=== PATIENT | male | born 1960 | race Caucasian/White ===

== ENCOUNTER → 2020-03-10 08:40 | Outpatient (CLI) | payer MEDICARE, BC ==
[2013-03-27 09:10] VITALS: BMI 23.5
== END | disposition home or self-care (01) ==
LOC: D.HCCECHO 08:40
PROVIDERS: ATTEND Internal Medicine Cardiovascular Disease
DX: I20.9 Angina pectoris, unspecified (principal); R06.00 Dyspnea, unspecified

== ENCOUNTER 2020-03-21 11:17 | Outpatient (CLI) | payer MEDICARE, BC ==
[~2020-03-21] VITALS: Ht 175.3 cm; Wt 88.6 kg
--- NOTE | ~2020-03-21 | HEMODYNAMI ---
PATIENT:ALISA MENDOZA JR MEDICAL RECORD: [id number] : 62 LOCATION:[facility] ADMISSION DATE: 03/21/20 Generatedon:03/21/202013:37 Patient name: ALISA MENDOZA Patient #: [id number] SSN: [id number] : 1960 Date of study: 03/21/2020 Page: Of Hemodynamic Procedure Report Patient Data Patient Demographics Procedure consent was obtained First Name: ALISA Gender: Male Last Name: REJI Suffix: Jr Freedman Initial: ARMANDO : 1960 Patient #: [id number] Age: 59 year(s) Race: SSN: [id number] Additional ID: [id number] Contact details [address]: [address] [place] [address] [address] State: [place] City: [place] Zip code: [address] Past Medical History Performed procedures and imaging results Date Procedure Procedure Results Comments Stress testing Positive->Intermediate with SPECT MPI risk Allergies: No known allergies Admission Admission Data Admission Date: 03/21/2020 Admission Time: 11:17 Admit Source: Other Lab Results Lab Result Date: 03/21/2020 Lab Result Time: 0:00 Biochemistry Name Units Result Min Max BUN mg/dl 16 --(---*)-- 7 18 Creatinine mg/dl 1 --(--*-)-- 0.6 1.3 eGFR ml/min 81 *-(----)-- 90 120 NONAFRICAN CBC Name Units Result Min Max Hematocrit % 39.7 -*(----)-- 42 54 Hemoglobin g/dl 13.3 -*(----)-- 13.5 17.5 Procedure Procedure Types Cath Procedure Diagnostic Procedure [facility] w/Coron[facility] Procedure Description Procedure Date Procedure Date: 03/21/2020 Procedure Start Time: 13:26 Procedure End Time: 13:35 Procedure Staff Name Function Liborio Lopez MD Performing Physician Amaris Bo RT Monitor Malik Chandra RT Scrub Buffie Sanders RN Nurse Procedure Data Cath Procedure Fluoroscopy Diagnostic fluoroscopy Total fluoroscopy Time: 2.1 time: 2.1 min min Diagnostic fluoroscopy Total fluoroscopy dose: 408 dose: 408 mGy mGy Contrast Material Contrast Material Type Amount (ml) Isovue 300 39 Entry Location Entry Primary Successful Side Size Upsize Upsize Entry Closure Gonzalez ccessful Closure Location (Fr) 1 (Fr) 2 (Fr) Remarks Device Remarks Radial Right 6 Fr Mechanical artery Short Compression Estimated blood loss: 5 ml Diagnostic catheters Device Type Used For End Catheter Placement DIAGNOSTIC [place] 110cm 5 Procedure Fr catheter ([id number]) Procedure Complications No complications Procedure Medications Medication Administration Route Dosage Oxygen etCO2 Nasal cannula 2 l/min Lidocaine 2% added to field 20 Heparin Flush Bag added to field 2 bags (1000units/500ml NS) 0.9% NaCl I.V. 100 ml/hr Versed I.V. 2 mg Fentanyl I.V. 100 mcg Radial Cocktail I.A. 1 syringe (Verapamil 2mg/Nitro 400mcg/Heparin 1500units) Versed I.V. 1 mg Fentanyl I.V. 50 mcg Hemodynamics Rest HGB: 13.3 (g/dl) Heart Rate: 54 (bpm) Pressure Samples Time Site Value (mmHg) Purpose Heart Use Rate(bpm) 13:28 LV 143/-11,7 Snapshot 62 13:28 AO 122/72(95) Pullback 87 13:28 LV 134/-10,2 Pullback 87 Gradients Valve Time Site 1 Site 2 Mean SEP/DFP Peak To Heart Use (mmHg) (sec/min) Peak Rate (mmHg) (bpm) Aortic 13:28 LV AO 12 6 12 87 134/-10,2 122/72(95) Calculations Valve P-P Mean Valve Index Valve Source Name Gradient Area Flow (cm2) Aortic 12 12 12 12 Snapshots Pre Cath Intra NCS Post Cath Vital Signs Time Heart Resp SPO2 etCO2 NIBP (mmHg) Rhythm Pain Sedation Rate (ipm) (%) (mmHg) Status Level (bpm) 13:06:47 71 16 100 0 161/98(142) NSR 0 (11) 10(A) , No pain 13:11:07 58 12 100 37.6 148/95(126) NSR 0 (11) 10(A) , No pain 13:15:28 57 16 94 33.1 142/85(107) NSR 0 (11) 10(A) , No pain 13:19:48 55 16 93 38.3 142/83(107) NSR 0 (11) 10(A) , No pain 13:24:04 65 18 94 27.8 145/91(112) NSR 0 (11) 10(A) , No pain 13:28:18 115 15 94 40.6 140/87(123) NSR 0 (11) 9(A) , No pain 13:32:34 67 14 93 39.1 129/77(107) NSR 0 (11) 10(A) , No pain Medications Time Medication Route Dose Verified Delivered Reason Notes Effectiveness by by 13:11:28 Oxygen etCO2 2 l/min Liborio Buffie used for Nasal John Sanders RN procedure cannula 13:11:35 Lidocaine 2% added 20ml Liborio Liborio for local to vial John Lopez MD anesthetic field 13:11:41 Heparin Flush added 2 bags Liborio Liborio used for Bag to John Lopez MD procedure (1000units/500ml field NS) 13:11:50 0.9% NaCl I.V. 100 Liborio Buffie Per ml/hr John Sanders RN physician 13:23:34 Versed I.V. 2 mg Liborio Buffie for sedation John Sanders RN 13:23:41 Fentanyl I.V. 100 mcg Liborio Buffie for sedation John Sanders RN 13:27:56 Radial Cocktail I.A. 1 Liborio Liborio for (Verapamil syringe John Lopez MD vasodilation 2mg/Nitro 400mcg/Heparin 1500units) 13:28:02 Versed I.V. 1 mg Liborio Liborio for sedation John Lopez MD 13:28:08 Fentanyl I.V. 50 mcg Liborio Liborio for sedation John Lopez MD Procedure Log Time Note 12:50:00 Amaris Bo RT(R) sent for patient. Start room use. 12:50:37 Informed consent obtained and on chart 13:00:38 Admit Source: Other 13:00:56 ACC Patient presents with Stable Angina CCS Anginal Class 2--Slight limitation of ordinary activity. 13:00:59 Procedure Status Elective Heart Cath (OP). 13:01:07 Time tracking: Regular hours (M-F 7:00 - 5:00) 13:01:10 Plan of Care:Hemodynamics will remain stable., Cardiac rhythm will remain stable., Comfort level will be maintained., Respiratory function will remain adequate., Patient/ family verbilizes understanding of procedure., Procedure tolerated without complication., Recovers from procedure without complications.. 13:01:13 Patient received from Pre/Post Procedure Room to [facility] 1 Alert and oriented. Tansferred to table in Supine position. 13:01:14 Warm blankets applied, and marimar hugger turned on for patient comfort. 13:01:14 Correct patient and procedure confirmed by team. 13:01:14 ECG and BP/O2 sat monitors applied to patient. 13:11:28 Oxygen 2 l/min etCO2 Nasal cannula was administered by Jaime Sanders RN; used for procedure; Verbal order read back and verified. 13:11:35 Lidocaine 2% 20ml vial added to field was administered by Liborio Lopez MD; for local anesthetic; Verbal order read back and verified. 13:11:41 Heparin Flush Bag (1000units/500ml NS) 2 bags added to field was administered by Liborio Lopez MD; used for procedure; Verbal order read back and verified. 13:11:50 0.9% NaCl 100 ml/hr I.V. was administered by Jaime Sanders RN; Per physician; Verbal order read back and verified. 13:12:37 Baseline sample Acquired. 13:12:42 Rhythm: sinus bradycardia 13:12:43 Full Disclosure recording started 13:12:52 H&P Date Dictated: 03/02/2020 Within 30 days and on chart., H&P Addendum completed by physician on day of procedure. (MUST COMPLETE FOR ALL OUTPATIENTS). 13:12:53 Pre-procedure instructions explained to patient. 13:12:53 Pre-op teaching completed and patient verbalized understanding. 13:13:04 Family available with phone call 13:14:00 Patient NPO since Midnight. 13:14:05 Patient allergic to No known allergies 13:14:08 Is the patient allergic to Iodine/contrast media? No. 13:14:09 Is patient on blood thinner?No 13:14:10 Patient diabetic? Yes. 13:14:12 If diabetic: On Metformin? Yes 13:14:14 If on Metformin: Last Dose? 03/19/2020 13:14:17 Previous problem with sedation/anesthesia? No ? 13:14:19 Snore? Yes 13:14:20 Sleep apnea? No 13:14:22 Deviated septum? No 13:14:23 Opens mouth fully? Yes 13:14:24 Sticks out tongue? Yes 13:14:27 Airway obstruction? No ? 13:14:30 Dentures? No . 13:14:34 Pre procedure: right dorsailis pedis pulse 1+ Palpable, but thready & weak; easily obliterated 13:14:36 Modified Tirso's test Ulnar < 7 seconds 13:14:59 Patient pain scale 0/10 ?. 13:15:08 IV patent on arrival in left hand with 0.9% NaCl at [facility]. 13:16:36 Lab Result : BUN 16 mg/dl 13:16:36 Lab Result : Creatinine 1 mg/dl 13:16:36 Lab Result : eGFR NONAFRICAN 81 ml/min 13:16:36 Lab Result : Hemoglobin 13.3 g/dl 13:16:36 Lab Result : Hematocrit 39.7 % 13:16:40 Lab results completed and on chart. 13:17:21 Stress Test: yes; abnormal INFERIOR 13:17:29 Right Radial & Right Groin area was prepped with chlora-prep and draped in sterile fashion 13:17:30 Alarms reviewed by R. N. 13:17:30 Sharps counted by scrub and verified by R.N. 13:17:43 Use device set Radial Dx or PCI 13:17:45 ACIST Syringe (96494) opened to sterile field. 13:17:46 Bag Decanter () opened to sterile field. 13:17:47 ACIST Hand Control (61430) opened to sterile field. 13:17:47 ACIST Manifold (36999) opened to sterile field. 13:17:48 Tegaderm 4 x 4 (1626W) opened to sterile field. 13:17:49 Medline Cath Pack ([id number]) opened to sterile field. 13:17:50 MBrace Wrist Support ([id number]) opened to sterile field. 13:17:58 EMERALD Guide Wire (296-329) opened to sterile field. 13:17:59 SHEATH 6FR RAIN (5962847) opened to sterile field. 13:18:02 NEEDLE Cook 21G 4cm Radial ([id number]) opened to sterile field. 13:22:09 --------ALL STOP TIME OUT------ 13:22:10 Final Timeout: patient, procedure, and site verified with staff and physician. All members of the team are in agreement. 13:22:12 Right Radial & Right Groin site verified by team. 13:22:20 Fire Safety Assessment: A--An alcohol-based skin anteseptic being used preoperatively., C--Open oxygen or nitrous oxide is being used., D--An ESU, laser, or fiber-optic light is being used. 13:22:26 Physical assessment completed. ASA score P 2 - A patient with mild systemic disease as per Liborio Lopez MD. 13:22:29 2) 60-89 Mildly reduced kidney function, and other findings (as for stage 1) point to kidney disease. 13:22:32 Maximum allowable contrast dose (3.7 X eGFR X 0.75)225 ml. 13:22:40 Sedation plan: IV Moderate Sedation Medication:Versed, Fentanyl 13:23:34 Versed 2 mg I.V. was administered by Jaime Sanders RN; for sedation; Verbal order read back and verified. 13:23:41 Fentanyl 100 mcg I.V. was administered by Jaime Sanders RN; for sedation; Verbal order read back and verified. 13:25:59 Procedure started. 13:26:12 Local anesthetic to right radial artery with Lidocaine 2% by Liborio Lopez MD.INITIAL ACCESS ONLY 13:27:09 A 6 Fr Short sheath was inserted into the Right Radial artery 13:27:56 Radial Cocktail (Verapamil 2mg/Nitro 400mcg/Heparin 1500units) 1 syringe I.A. was administered by Liborio Lopez MD; for vasodilation; Verbal order read back and verified. 13:28:02 Versed 1 mg I.V. was administered by Liborio Lopez MD; for sedation; Verbal order read back and verified. 13:28:08 Fentanyl 50 mcg I.V. was administered by Liborio Lopez MD; for sedation; Verbal order read back and verified. 13:28:10 A DIAGNOSTIC [place] 110cm 5 Fr catheter ([id number]) was advanced over the wire and used for Procedure. 13:28:13 LV gram done using SNOW 13:28:17 Injector settings: Ml/sec: 5, Volume: 15, 13:28:18 LV hemodynamics recorded. 13::28 EF : 60 % 13:29:47 RCA angiography performed. 13:31:03 LCA angiography performed. 13:31:10 ACCDominant side:Left 13:31:23 Catheter removed. 13:31:28 ZEPHYR REGULAR TR BAND (597900) opened to sterile field. 13:31:48 Procedure ended.(Physican Out) 13:32:07 Sheath removed intact; hemostasis achieved with Mechanical Compression to the Right Radial artery. 13:32:22 Fluoroscopy time 02.10 minutes. 13:32:26 Fluoroscopy dose: 408 mGy 13:32:26 Flurop Dose total: 408 13:32:31 Dose Area Product 47225 mGy/cm. 13:32:38 Contrast amount:Isovue 300 39ml. 13:32:41 Maximum allowable dose exceeded? No. 13:32:42 Sharps counted by scrub and verified by R.N. 13:32:43 [place] band inflated with 10cc of air. 13:32:53 Post-procedure physical assessment completed. ASA score P 2 - A patient with mild systemic disease as per Liborio Lopez MD. 13:32:56 Post procedure rhythm: sinus rhythm 13:32:59 Estimated blood loss: 5 ml 13:33:31 Post procedure instruction explained to patient.Patient verbalizes understanding. 13:33:32 Patient needs reinforcement of post procedure teaching. 13:35:05 Procedure and supply charges have been captured, reviewed, submitted and are correct. 13:35:23 Procedure Complication : No complications 13:35:25 Vital chart was stopped 13:35:26 [facility] Findings: mild to moderate CAD (<70%) 13:35:28 Operative report dictated upon procedure completion. 13:35:28 See physician's report for complete and final results. 13:35:30 Report given to Pre/Post Procedure Room. 13:35:32 Patient transfered to Pre/Post Procedure Room with Bed. 13:35:34 Procedure ended. 13:35:34 Full Disclosure recording stopped 13:35:37 End room use (Document Last) 13:36:18 End room use (Document Last) 13:36:41 End room use (Document Last) Device Usage Item Name Manufacture Quantity Catalog Hospital Part Current Minima l Lot# / Number Charge Number Stock Stock Serial# Code ACIST Acist 1 57626 875608 955534 [id number] 20 Syringe Medical (43151) Systems Inc Bag Microtek 1 324680 94909 831283 5 Decanter Medical Inc. () ACIST Hand Acist 1 02840 929465 186752 985952 5 Control Medical (02011) Systems Inc ACIST Acist 1 70009 083716 454772 394266 5 Manifold Medical (47405) Systems Inc Tegaderm 4 3M 1 1626W 601480 905358 913694 5 x 4 (1626W) Medline Medline 1 [id number] 137350 66675 842578 5 Cath Pack ([id number]) MBrace Advanced 1 140-0250-00 746362 62647 485717 5 Wrist Vascular Support Dynamics ([id number]) EMERALD Cardinal 1 502-009 854243 911954 090050 5 Guide Wire Health (502455) SHEATH 6FR Cardinal 1 8594150 509674 [id number] 831325 5 RAIN Health (3960182) NEEDLE Cook [place] [employer] 1 D29202 195591 948251 138915 5 21G 4cm Radial (M71118) ZEPHYR Cardinal 1 221252 006898 3036227 980183 5 REGULAR TR Health BAND (846551) DIAGNOSTIC Terumo 1 73-7290 058801 378842 105976 5 [place] 110cm 5 Fr catheter (648261) Signature Audit [place] Stage Time Signature Unsigned Intra-Procedure 03/21/2020 Amaris Bo 1:36:18 PM RT(R) Intra-Procedure 03/21/2020 Jaime Sanders RN 1:36:41 PM Intra-Procedure 03/21/2020 Liborio Lopez MD 1:37:10 PM [facility] [address] [place] [address]
[2020-03-21] MEDS ORDERED: PROTONIX40 MG PO (11:30)
[2020-03-21] MEDS ORDERED: AMBIEN10 MG PO (11:31)
[2020-03-21] MEDS ORDERED: TENORMIN25 MG PO (11:31)
[2020-03-21] MEDS ORDERED: GLUCOPHAGE500 MG PO (11:31)
[2020-03-21] MEDS ORDERED: PAXIL30 MG PO (11:32)
[2020-03-21] MEDS ORDERED: GEMFIBROZIL600 MG PO (11:32)
[2020-03-21 11:38] VITALS: BP 132/76; Ht 175.3 cm; Wt 88.6 kg
[2020-03-21 11:53] LABS: BASOPHILS 0.2 % (0-2); EOSINOPHILS 2.8 % (0-7); HEMATOCRIT 39.7 % (42.0-54.0); HEMOGLOBIN 13.3 g/dL (13.5-17.5); IMMATURE GRANULOCYTES 0.2 % (0-5); LYMPHOCYTES 28.3 % (15-50); MCH 30.2 pg (26.0-34.0); MCHC 33.5 g/dL (31.0-37.0); MCV 90.2 fL (80.0-100.0); MONOCYTES 9.3 % (2-11); NEUTROPHILS 59.2 % (40-80); RDW 12.7 % (11.5-14.5); WBC 5.4 10x3/uL (4.8-10.8)
[2020-03-21 11:55] LABS: PLATELET COUNT 165 10x3/uL (130-400)
[2020-03-21 12:09] LABS: ALT (SGPT) 33 U/L (10-68); CALC OSMOLALITY 280 mosm/kg (275-300); CALCIUM 9.3 mg/dL (8.5-10.1); CARBON DIOXIDE 26.6 mmol/L (21.0-32.0); CHLORIDE - SERUM 104 mmol/L (98-107); CHOL - HDL RATIO 3.6 ratio (2.3-4.9); CHOLESTEROL, TOTAL 174 mg/dL (0-200); GLUCOSE 134 mg/dL (74-106); HDL CHOLESTEROL 48 mg/dL (32-96); LDL CHOLESTEROL 100 mg/dL (0-100); LDL-HDL RATIO 2.1 ratio (1.5-3.5); POTASSIUM - SERUM 4.2 mmol/L (3.5-5.1); SODIUM 139 mmol/L (136-145); TRIGLYCERIDE 132 mg/dL (30-200); UREA NITROGEN 16 mg/dL (7-18); eGFR NON AFRICAN AMERICAN 81 mL/min (90-120)
--- NOTE | 2020-03-21 13:44 | NUR ---
PT ARRIVED BY STRETCHER. PLACED ON MONITORS. ASSESSMENT COMPLETED. VSS. CALL LIGHT WITHIN REACH.
--- NOTE | 2020-03-21 14:00 | NUR ---
RIGHT WRIST Z BAND IN PLACE. NO BLEEDING/HEMATOMA NOTED. CALL LIGHT WITHIN REACH. VSS AT THIS TIME.
--- NOTE | 2020-03-21 14:30 | NUR ---
PT MORE ALERT AND AWAKE. HEAD OF BED INC TO 30 DEGREES. TOLERATED WELL. VSS AT THIS TIME. SET UP WITH SANDWICH TRAY AND DRINK. DENIES NAUSEA/PAIN AT THIS TIME.
--- NOTE | 2020-03-21 15:00 | NUR ---
2cc OF AIR REMOVED FROM Z BAND. NO BLEEDING/HEMATOMA NOTED. VSS. PT DENIES ANY NEEDS AT THIS TIME.
--- NOTE | 2020-03-21 15:15 | NUR ---
3cc OF AIR REMOVED FROM Z BAND. NO BLEEDING/HEMATOMA NOTED.
--- NOTE | 2020-03-21 15:30 | NUR ---
5cc OF AIR REMOVED FROM Z BAND. NO BLEEDING/HEMATOMA NOTED. PT TOLERATING WELL. VSS.
--- NOTE | 2020-03-21 15:45 | NUR ---
Z BAND REMOVED AND DRESSING APPLIED. NO BLEEDING/HEMATOMA NOTED. VSS. PIV D/C'D WITH CATH TIP INTACT. TOLERATED WELL. RIGHT WRIST BRACE IN PLACE. DISCUSSED DISCHARGE INSTRUCTIONS WITH PT. HE VOICED UNDERSTANDING. PT INSTRUCTED TO GET UP AND DRESSED AT THIS TIME. NO ASSISTANCE NEEDED. CALL LIGHT WITHIN REACH.
--- NOTE | 2020-03-21 16:00 | NUR ---
PT TAKEN DOWN TO VEHICLE BY WHEELCHAIR. NO S/S OF DISTRESS NOTED. ALL BELONGINGS AND PAPWERWORK IN HAND.
== END 2020-03-21 16:00 | disposition home or self-care (01) ==
LOC: D.CATH 11:17
PROVIDERS: ATTEND Internal Medicine Cardiovascular Disease
DX: I20.9 Angina pectoris, unspecified (principal); R94.39 Abnormal result of other cardiovascular function study; R73.03 Prediabetes; R06.00 Dyspnea, unspecified; Z82.49 Family history of ischemic heart disease and other diseases of the circulatory system; R00.2 Palpitations